=== PATIENT | female | born 1990 | race Two or more races ===

== ENCOUNTER 2020-12-27 18:22 | Emergency (ER) | payer MEDICAID, OTHER ==
[~2020-12-27] VITALS: Ht 154.9 cm; Wt 60.3 kg
[2020-12-27 20:58] LABS: Urine Bacteria MANY /hpf (None Seen); Urine Blood Negative /uL (Negative); Urine Specific Gravity 1.007 (1.001-1.035); Urine WBC 14 /hpf (0 - 5)
[2020-12-27 21:26] VITALS: BP 116/72
== END 2020-12-27 21:32 | disposition home or self-care (01) ==
LOC: ER 18:25
DX: O20.0 Threatened abortion (principal); Z3A.11 11 weeks gestation of pregnancy
CPT/HCPCS: 36415; 76801; 81001; 84702